=== PATIENT | female | born 1995 | race African-American/Black ===

== ENCOUNTER 2016-10-24 16:17 | Emergency (ER) | payer OTHER ==
[~2016-10-24] VITALS: Ht 167.6 cm; Wt 64.8 kg
[2016-10-24 16:18] VITALS: BP 128/85
[2016-10-24] MEDS ORDERED: DIPH,PERTUSS(ACELL),TET VAC/PF 0.5 ML IM-VACC ONE ×2 (16:56→17:00)
== END 2016-10-24 17:33 | disposition home or self-care (01) ==
LOC: ED 17:06
DX: S91.012A Laceration without foreign body, left ankle, initial encounter (principal); Z23 Encounter for immunization; W25.XXXA Contact with sharp glass, initial encounter; Y93.89 Activity, other specified; Y99.8 Other external cause status; Y92.89 Other specified places as the place of occurrence of the external cause
CPT/HCPCS: 90471; 90715